=== PATIENT | female | born 1945 | race Caucasian/White ===

== ENCOUNTER → 2023-12-09 10:53 | Outpatient (REF) | payer MEDICARE, BC, SELFPAY | LOC: WDC 10:53 | PROVIDERS: ATTENDING PHYSICIAN Surgery | DX: C50.411 Malignant neoplasm of upper-outer quadrant of right female breast (principal); N63.11 Unspecified lump in the right breast, upper outer quadrant | CPT/HCPCS: 19285; 38792; 76942; 77065; A4648; A9541 ==

== ENCOUNTER 2023-12-10 06:29 | Day surgery (SDC) | payer MEDICARE, BC, SELFPAY ==
[2023-11-14 13:01] VITALS: BMI 27.9
[2023-12-10 09:20] VITALS: BP 130/65
[2023-12-10] MEDS: NORMOSOL-R 1000 IV (09:25)
[2023-12-10 09:31] VITALS: BMI 27.9
[2023-12-10] MEDS: TYLENOL 1000 MG PO (09:36)
[2023-12-10 11:30] VITALS: BP 128/65
[2023-12-10 11:45] VITALS: BP 135/68
[2023-12-10 12:00] VITALS: BP 127/69
--- NOTE | 2023-12-10 12:02 | PTCARENOTE ---
Patient states that she no longer is on Eliquis. Patient and both daughters states that Dr. Louise said that she no longer ever has to restart it and that she is not off it just because of her breast surgery today. Dr Murray notified and aware.
== END 2023-12-10 12:28 | disposition home or self-care (01) ==
LOC: SDS 06:29
PROVIDERS: ATTENDING PHYSICIAN Surgery; FAMILY PHYSICIAN Internal Medicine Geriatric Medicine
DX: C50.411 Malignant neoplasm of upper-outer quadrant of right female breast (principal)
CPT/HCPCS: 38525; 19301; 88305; 88307; 88332; 76098; 88331; 88342; A4648; C1729

== ENCOUNTER → 2024-01-27 09:09 | Outpatient (REF) | payer MEDICARE, BC, SELFPAY | LOC: RAD 09:09 | PROVIDERS: ATTENDING PHYSICIAN Internal Medicine Hematology & Oncology; FAMILY PHYSICIAN Internal Medicine Geriatric Medicine | DX: I26.09 Other pulmonary embolism with acute cor pulmonale (principal); I82.402 Acute embolism and thrombosis of unspecified deep veins of left lower extremity; Z72.0 Tobacco use; R93.89 Abnormal findings on diagnostic imaging of other specified body structures; Z78.0 Asymptomatic menopausal state | CPT/HCPCS: 77080 ==

== ENCOUNTER → 2024-04-21 15:09 | Outpatient (REF) | payer MEDICARE, BC, SELFPAY | LOC: RAD 15:09 | PROVIDERS: ATTENDING PHYSICIAN Family Medicine Geriatric Medicine | DX: M79.89 Other specified soft tissue disorders (principal); M79.662 Pain in left lower leg | CPT/HCPCS: 93970 ==

== ENCOUNTER → 2024-04-23 12:39 | Outpatient (REF) | payer MEDICARE, BC, SELFPAY ==
[2024-04-23 13:18] LABS: % Basophils 0.3 % (0-2); % Eosinophils 0.7 % (0-6); % Immature Granulocytes 0.3 % (0-0.5); % Lymphocytes 22.8 % (20.5-51.1); % Monocytes 6.8 % (1.7-9.3); % Neutrophils 69.1 % (42.2-75.2); Absolute Eosinophils 0.1 10^3/uL (0-0.7); Absolute Lymphocytes 1.6 10^3/uL (1.2-3.4); Absolute Monocytes 0.5 10^3/uL (0.1-0.6); Absolute Neutrophils 4.8 10^3/uL (1.4-6.5); Hematocrit 39.7 % (37.0-47.0); Hemoglobin 13.7 g/dL (12.0-16.0); Mean Corp Hgb Conc. 34.5 g/dL (33.0-37.0); Mean Corpuscular Hgb 33.5 pg (27.0-31.0); Mean Corpuscular Volume 97.1 fL (81.0-99.0); Nucleated Red Blood Cells % 0 %; Platelet Count 207 10^3/uL (130-400); Red Blood Cell Count 4.09 10^6/uL (4.20-5.40); Red Cell Dist. Width 13.5 % (11.5-14.5)
[2024-04-23 13:33] LABS: ALT (SGPT) 13 U/L (0-35); AST (SGOT) 21 U/L (14-36); Albumin 4.4 g/dl (3.5-5.0); Alkaline Phosphatase 74 U/L (38-126); Blood Urea Nitrogen 15 mg/dl (7-17); Calcium 9.7 mg/dl (8.4-10.2); Carbon Dioxide 26 mmol/L (22-30); Chloride 106 mmol/L (98-107); Glucose 105 mg/dl (70-99); Iron 88 ug/dl (37-170); Magnesium 1.9 mg/dl (1.6-2.3); Potassium 4.3 mmol/L (3.5-5.1); Sodium 139 mmol/L (135-145); Total Bilirubin 0.7 mg/dl (0.2-1.3); Total Protein 6.9 g/dl (6.3-8.2); eGFR > 60.00
[2024-04-23 13:42] LABS: Percent Saturation 24 % (20-50); Total Iron Binding Capacity 366 ug/dl (265-497)
== END ==
LOC: RAD 12:39
PROVIDERS: ATTENDING PHYSICIAN Nurse Practitioner Family; FAMILY PHYSICIAN Internal Medicine Geriatric Medicine
DX: M79.604 Pain in right leg (principal); M25.561 Pain in right knee; M79.605 Pain in left leg; M25.562 Pain in left knee; C50.411 Malignant neoplasm of upper-outer quadrant of right female breast
CPT/HCPCS: 36415; 73564; 80053; 82728; 83540; 83550; 83735; 85025

== ENCOUNTER → 2024-05-18 10:58 | Outpatient (REF) | payer MEDICARE, BC, SELFPAY | LOC: RAD 10:58 | PROVIDERS: ATTENDING PHYSICIAN Nurse Practitioner Family; REFERRING PHYSICIAN Internal Medicine Geriatric Medicine | DX: M79.604 Pain in right leg (principal) | CPT/HCPCS: 93971 ==

== ENCOUNTER → 2024-06-04 14:33 | Outpatient (REF) | payer MEDICARE, BC, SELFPAY | LOC: WDC 14:33 | PROVIDERS: ATTENDING PHYSICIAN Surgery; FAMILY PHYSICIAN Internal Medicine Geriatric Medicine | DX: C50.411 Malignant neoplasm of upper-outer quadrant of right female breast (principal) | CPT/HCPCS: 76642 ==

== ENCOUNTER → 2024-09-29 13:49 | Outpatient (REF) | payer MEDICARE, BC, SELFPAY | LOC: WDC 13:49 | PROVIDERS: ATTENDING PHYSICIAN Surgery; FAMILY PHYSICIAN Internal Medicine Geriatric Medicine | DX: Z12.31 Encounter for screening mammogram for malignant neoplasm of breast (principal) | CPT/HCPCS: 76642 ==

== ENCOUNTER → 2024-10-27 16:39 | Outpatient (REF) | payer MEDICARE, BC, SELFPAY | LOC: WDC 16:39 | PROVIDERS: ATTENDING PHYSICIAN Internal Medicine Geriatric Medicine | DX: Z12.31 Encounter for screening mammogram for malignant neoplasm of breast (principal) | CPT/HCPCS: 77063; 77067 ==

== ENCOUNTER 2025-05-24 07:57 | Inpatient (IN) | payer MEDICARE, BC, SELFPAY ==
[2025-05-22] VITALS (10 sets, daily range): BP systolic 114–136; BP diastolic 56–95; BMI 25.5; BMI 23.9
[2025-05-22] MEDS: DILAUDID 0.25 MG IV (08:53)
[2025-05-22 09:01] LABS: Hematocrit 38.0 % (37.0-47.0); Hemoglobin 13.0 g/dL (12.0-16.0); Mean Corp Hgb Conc. 34.2 g/dL (33.0-37.0); Mean Corpuscular Volume 97.2 fL (81.0-99.0); Platelet Count 184 10^3/uL (130-400); Red Cell Dist. Width 13.5 % (11.5-14.5)
[2025-05-22 09:32] LABS: ALT (SGPT) 16 U/L (0-35); AST (SGOT) 21 U/L (14-36); Albumin 4.1 g/dl (3.5-5.0); Alkaline Phosphatase 67 U/L (38-126); Blood Urea Nitrogen 13 mg/dl (7-17); Calcium 9.3 mg/dl (8.4-10.2); Carbon Dioxide 27 mmol/L (22-30); Chloride 105 mmol/L (98-107); Estimated Creatinine Clearance 67 ml/min; Glucose 135 mg/dl (70-99); Potassium 4.5 mmol/L (3.5-5.1); Sodium 138 mmol/L (135-145); Total Protein 6.7 g/dl (6.3-8.2); eGFR > 60.00
--- NOTE | 2025-05-22 09:36 | ED.GENMED ---
History of Present Illness
General
Chief Complaint: Fall
Time Seen by Provider: 05/22/25 08:41
History of Present Illness
History of Present Illness:
80-year-old female with history of breast cancer in remission presents to the emergency department for evaluation after a fall at approximately 3 AM today. Denies head strike. She is not on blood thinners. She landed on her left hip and pelvis
and reports exquisite left hip pain, unable to walk. Denies low back pain or incontinence. No dizziness or headaches.
Review of Systems
Review of Systems
Allergies reviewed?: Yes
All Other Systems: ROS reviewed and negative except as documented in HPI and ROS
Phy Exam
Physical Exam
Physical Exam:
GEN: Well appearing, NAD, WDWN
HEENT: Oral mucosa moist, no scleral icterus
Cardiac: Regular rate
Lung: No respiratory distress, no tachypnea
MSK: No gross deformity or injuries. No shortening or external rotation, marked tenderness to the right lateral hip
Skin: Good color, no pallor or jaundice, no rashes
Neuro: AO x3, moves all extremities freely
Psych: Calm, cooperative
Course
Orders/Labs/Results
Orders:
Orders
05/22/25 08:47
HYDROmorphone [Dilaudid] 0.25 mg IV NOW STA
CR Hip - LT w/wo Pel 2-3 Vw* Urgent
Comment:
Reason For Exam: fall
Include a pelvis x-ray?: Yes
05/22/25 08:51
Complete Blood Count/No Diff Urgent
Comprehensive Metabolic Panel Urgent
05/22/25 09:30
[address] Pelvis W/o Iv Contrast Urgent
Comment:
Reason For Exam: fall L hip pain neg xr
05/22/25 12:11
HYDROmorphone [Dilaudid] 0.5 mg IV NOW STA
Ketorolac [Toradol] 15 mg IV NOW STA
05/22/25 13:22
Admit/Transfer Patient As Directed
Co-Sign Provider:
Level of Care: Observation services
Assign to:: Medical/Surgical
Physician / Group: daily
Diagnosis: fractured paraspinal rods
Code Status As Directed
Resuscitation Status: Full Code
PRN Pain Medication Management As Directed
May give lesser potent ordered pain med per pt: Yes
preference::
Protocol:: Medication orders for pain may be administered in a
manner that supports deferring to patient preference
when the pt is:
- Requesting an ordered lesser potent pain medication.
Least to most potent pain medications are defined
as: acetaminophen < NSAID < tramadol < opioids
(morphine, oxycodone, hydromorphone).
- Requesting a lesser dose of the same medication IF
ORDERED.
- Requesting a less intrusive route of administration
if both routes are prescribed by the provider (PO <
IV).
Abnormal Lab Results
05/22/25
08:51
WBC 11.0 H 10^3/uL
(4.8-10.8)
RBC 3.91 L 10^6/uL
(4.20-5.40)
MCH 33.2 H pg
(27.0-31.0)
Glucose 135 H mg/dl
(70-99)
05/22/25 08:51
05/22/25 08:51
Vital Signs
Initial and Last Documented VS:
Initial Vital Signs
Pulse Resp Pulse Ox
78 18 98
05/22/25 08:42 05/22/25 08:42 05/22/25 08:42
Last Documented Vital Signs
Pulse Resp BP Pulse Ox
72 13 118/65 97
05/22/25 12:15 05/22/25 12:15 05/22/25 12:00 05/22/25 12:15
MDM/Problems Addressed
MDM/Problems Addressed:
Patient's x-ray and CT show no evidence for hip or pelvic fracture. Incidentally she is noted to have discontinuity of her paraspinous lumbar rods however this is not likely acute as she has no acute back pain. She is unable to ambulate despite
numerous doses of pain medicine thus will admit to the hospitalist service for further management
*Pulse Oximetry
SaO2: 98
Patient hypoxic: no
*Critical Care Note
Total Time (30-74mins, 75-104mins- exclusive of procedures): Not Applicable
ED Attending Note
-
Portions of this chart may have been created with voice recognition software.� Occasional wrong word or��sound alike� substitutions may have occurred due to the inherent limitations of voice recognition software.
Discharge Plan
Departure
Patient Disposition: Admit
Date of Disposition: 05/22/25
Time of Disposition: 12:57
Admit to: Med/Surg
Presentation/result/management discussed w/ accepting MD/DO: Hospitalist
Discharge Problem:
Ambulatory dysfunction, Contusion of left hip
Interventions
Interventions:
*Risk Screen - Suicide Last Done: 05/22/25 08:43
*General Assessment Last Done: 05/22/25 08:43
*Neglect/Abuse Screening Last Done: 05/22/25 08:43
*ED- Fall Risk Assessment Last Done: 05/22/25 08:44
*ED COVID-19 Vaccine History Last Done: 05/22/25 08:44
ED-Musculoskeletal Assessment Last Done: 05/22/25 09:06
ED- Neurological Assessment Last Done: 05/22/25 08:57
ED-Skin Assessment Last Done: 05/22/25 09:06
[2025-05-22] MEDS: TORADOL 15 MG IV (12:19)
[2025-05-22] MEDS: DILAUDID 0.5 MG IV (12:20)
--- NOTE | 2025-05-22 13:24 | HPS.HSE ---
Addendum entered and electronically signed by Harshad Kuhn MD 05/22/25 22:35:
Neurosurgery looked at scan and recommended outpatient follow up for fractured paraspinal rods.
Original Note:
Family Physician
-
Family Physician: Fran Noguera
Chief Complaint
-
left hip pain
History of Present Illness
80-year-old female past medical history of breast cancer status post radiation in remission, undiagnosed cognitive impairment, spinal fusion for osteoarthritis 8 years ago complicated by DVT, presenting with fall at 3 AM today that was unwitnessed.
No head injury. No blood thinners. She landed on her left hip and pelvis and reports exquisite left hip and groin pain with movement and unable to walk. Denies lower back pain or incontinence. No dizziness or headache. No other recent falls.
She had spinal fusion 8 years ago with chronic edema of the left lower extremity since then. She also has chronic numbness and tingling of the left lower extremity.
She has new cognitive decline over the past several months.
She smokes 4 cigarettes a day. Denies alcohol.
Medical History
Past Medical History
Past Medical History: Reports Other (breast cancer status post radiation in remission, undiagnosed cognitive impairment, spinal fusion for osteoarthritis 8 years ago complicated by DVT)
Past Surgical History: Reports Other (hysterectomy, spinal fusion )
Social History
Tobacco: Non-smoker
Alcohol: None
Drug: None
Family History
Family History: Not pertinent
Allergies / Home Medications
Allergies reflects when Allergies were last updated in [employer].
Home Medications with original date entered in [employer]
Allergy/Medication List:
Allergies
Allergy/AdvReac Type Severity Reaction Status Date / Time
No Known Allergies Allergy Verified 12/10/23 09:28
Home Medications
Vitamin B-12 1 tab PO .PRN 12/05/23
atorvastatin 80 mg tablet 80 mg PO Q3D 12/05/23
Review of Systems
-
History Source: Patient
A 12 point ROS was completed and negative except as noted: Yes
Constitutional: Reports No Symptoms
EENT: Reports No Symptoms
Respiratory: Reports No Symptoms
Cardiac: Reports No Symptoms
Abdomen/GI: Reports No Symptoms
: Reports No Symptoms
Musculoskeletal: Reports No Symptoms
Skin: Reports No Symptoms
Neurological: Reports No Symptoms
Endocrine: Reports No Symptoms
Hematologic/Lymphatic: Reports No Symptoms
Psych: Reports No Symptoms
Physical Exam
Vital Signs
Vital Signs
Pulse Resp BP Pulse Ox
72 13 118/65 97
05/22/25 12:15 05/22/25 12:15 05/22/25 12:00 05/22/25 12:15
Physical Exam
General: Well Developed, Well Nourished and No Apparent Distress
HEENT: NormoCephalic, Moist mucous membranes and Atraumatic
Respiratory: Clear
Cardiac: S1/S2 and Regular Rhythm; No Murmur or Rub
GI: Soft, Non Tender, Non Distended and Normal Bowel Sounds; No Organomegaly
Rectal: Deferred by Provider
Musculoskeletal: No Clubbing, No Cyanosis and No Edema
Skin: No Rash
Neuro: Nonfocal/grossly intact
Laboratory Results
-
05/22/25 08:51
05/22/25 08:51
Laboratory Results
Total Bilirubin 0.7 mg/dl (0.2-1.3) 05/22/25 08:51
AST 21 U/L (14-36) 05/22/25 08:51
ALT 16 U/L (0-35) 05/22/25 08:51
Alkaline Phosphatase 67 U/L (38-126) 05/22/25 08:51
Data Reviewed
-
Lab Data: Labs Reviewed by me
Old Records: Reviewed
Impression/Plan
-
IMPRESSION:
PLAN:
# Ambulatory dysfunction with fall
# Fractured paraspinal rods without displacement
# Prior lumbar spinal fusion 8 years ago
- Hip x-ray shows severe osteoarthritis of the left hip, fracture bilateral posterior paraspinal rods
- Pelvic CT shows previous circumferential spinal fusion, bilateral posterior intra mentation bilateral osseous fusion graft, fracture bilateral posterior paraspinal rods without evidence for displacement
- Tylenol, ketorolac, Dilaudid for pain
- Neurosurgery consulted for recommendations on fractured paraspinal rods
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
- Not on anticoagulation currently
Breast cancer status post radiation in remission
Undiagnosed cognitive impairment
Smoker
Full code
DVT prophylaxis�heparin
Regular diet
--- NOTE | 2025-05-22 14:04 | CM ---
CM reviewed chart and met with pt bedside in ED. Pt shares a house with her daughter, pt lives in first floor, daughter on second floor. [address].
Independent in ADLs, personal care and ambulation at baseline, no assistive devices, still drives.
RIZVI reviewed and signed.
Confirms prescription coverage.
No hx VN or SNF
PCP: Bin Noguera
Pharmacy:[address]
CM will continue to follow for any discharge planning needs.
[2025-05-22] MEDS: HEPARIN 5000 UNITS SC (20:22)
[2025-05-23 07:05] VITALS: BP 131/55
[2025-05-23] MEDS: FEMARA 2.5 MG PO (07:43)
[2025-05-23] MEDS: HEPARIN 5000 UNITS SC (07:43)
[2025-05-23 08:44] LABS: Hematocrit 35.8 % (37.0-47.0); Hemoglobin 12.3 g/dL (12.0-16.0); Mean Corp Hgb Conc. 34.4 g/dL (33.0-37.0); Mean Corpuscular Volume 95.7 fL (81.0-99.0); Nucleated Red Blood Cells % 0 %; Platelet Count 155 10^3/uL (130-400); Red Cell Dist. Width 13.4 % (11.5-14.5)
--- NOTE | 2025-05-23 08:49 | W.PN.HOSP.TC ---
Today's Communication/Plan
-
PT/OT
pain control
dc planning
Assessment / Plan
Assessment / Plan
80F w/ breast cancer s/p radiation in remission, undiagnosed cognitive impairment, spinal fusion for osteoarthritis 8 years ago complicated by DVT, presenting with fall. Found to have fractured bilateral posterior paraspinal rods.
# Fractured paraspinal rods without displacement
Prior lumbar spinal fusion 8 years ago
- Hip x-ray shows severe osteoarthritis of the left hip, fracture bilateral posterior paraspinal rods
- Pelvic CT shows previous circumferential spinal fusion, bilateral posterior intra mentation bilateral osseous fusion graft, fracture bilateral posterior paraspinal rods without evidence for displacement
- Tylenol, ketorolac, Dilaudid for pain
- Neurosurgery consulted for recommendations on fractured paraspinal rods. Per notes Neurosurgery looked at scan and recommended outpatient follow up for fractured paraspinal rods.
PT/OT
#History of DVT after spinal fusion
used to be on eliquis for years
Not on anticoagulation currently
#Breast cancer status post radiation in remission
#Undiagnosed cognitive impairment
Full code
DVT prophylaxis�lovenox
Anticipated Discharge: Within 24 hours
Subjective/Interval History
-
Date of Service: May 23, 2025
Pt still with pain in L groin when she tries to move left leg. Daughters at bedside. All questions answered as able.
Objective Data
-
Labs:
Laboratory Results
05/23/25
07:37
WBC 6.1
Hgb 12.3
Hct 35.8 L
Plt Count 155
Sodium Pending
Potassium Pending
Chloride Pending
Carbon Dioxide Pending
BUN Pending
Creatinine Pending
Glucose Pending
Calcium Pending
Total Bilirubin Pending
AST Pending
ALT Pending
Alkaline Phosphatase Pending
Vital Signs:
Vital Signs
Temp Pulse Resp BP Pulse Ox
99 F 68 16 131/55 89
05/23/25 07:05 05/23/25 07:05 05/23/25 07:05 05/23/25 07:05 05/23/25 07:05
I&O
05/22/25 05/23/25 05/24/25
06:59 06:59 06:59
Output Total 500 / 500
Balance -500 / -500
Review of Systems
-
All other systems: Reviewed and negative
Physical Exam
-
General: No Apparent Distress
HEENT: Moist Mucous Membranes, Anicteric and PERRLA
Respiratory: Clear to Auscultation; Negative Wheezes, Rales or Rhonchi
Cardiac: Regular Rhythm and S1/S2; Negative Murmur, Rub or Gallop
GI: Soft, Nontender, Nondistended and Normal Bowel Sounds
Musculoskeletal: No Edema and Other (pain with lifting L leg. L groin nontender to palpation)
Skin: Warm and Dry; Negative Rash, Ulcers or Lesions
Neuro: Awake and AO x 3
Hematologic / Lymphatic: No Lymphadenopathy
Psych: Calm
Data Reviewed
-
CT Scan: Image personally visualized and interpreted, Report Reviewed by me, Discussed with Patient and Discussed with Family
Labs: Labs Reviewed by me, Discussed with Patient and Discussed with Family
--- NOTE | 2025-05-23 09:00 | CM ---
Patient is OBS, therefore cannot qualify for skilled placement under Medicare will look into [facility] and review private pay, need PT/OT evaluations and recommendations to review discharge plan.
Plan; Await PT/OT evaluations
[2025-05-23 09:09] LABS: ALT (SGPT) 13 U/L (0-35); AST (SGOT) 18 U/L (14-36); Albumin 3.6 g/dl (3.5-5.0); Alkaline Phosphatase 72 U/L (38-126); Blood Urea Nitrogen 11 mg/dl (7-17); Calcium 8.7 mg/dl (8.4-10.2); Carbon Dioxide 25 mmol/L (22-30); Chloride 107 mmol/L (98-107); Estimated Creatinine Clearance 67 ml/min; Glucose 108 mg/dl (70-99); Potassium 3.8 mmol/L (3.5-5.1); Sodium 135 mmol/L (135-145); Total Protein 6.0 g/dl (6.3-8.2); eGFR > 60.00
[2025-05-23] MEDS: DILAUDID 0.5 MG IV ×2 (10:27→15:02)
[2025-05-23] MEDS: SENOKOT-S 1 TABLET PO (12:55)
[2025-05-23 15:07] VITALS: BP 134/61; PULSE 64; O2SAT 94
[2025-05-23 15:32] VITALS: BP 127/58
[2025-05-23] MEDS: LOVENOX 40 MG SC (17:14)
[2025-05-23 23:52] VITALS: BP 130/54
[2025-05-24 06:54] LABS: Hematocrit 36.5 % (37.0-47.0); Hemoglobin 12.6 g/dL (12.0-16.0); Mean Corp Hgb Conc. 34.5 g/dL (33.0-37.0); Mean Corpuscular Volume 96.1 fL (81.0-99.0); Platelet Count 152 10^3/uL (130-400); Red Cell Dist. Width 13.2 % (11.5-14.5)
[2025-05-24 07:27] LABS: Blood Urea Nitrogen 11 mg/dl (7-17); Calcium 9.1 mg/dl (8.4-10.2); Carbon Dioxide 23 mmol/L (22-30); Chloride 107 mmol/L (98-107); Estimated Creatinine Clearance 67 ml/min; Glucose 104 mg/dl (70-99); Potassium 3.9 mmol/L (3.5-5.1); Sodium 136 mmol/L (135-145); eGFR > 60.00
[2025-05-24 07:30] VITALS: BP 146/65
[2025-05-24] MEDS: FEMARA 2.5 MG PO (07:32)
[2025-05-24] MEDS: DILAUDID 0.5 MG IV ×2 (09:34→17:40)
[2025-05-24 10:00] VITALS: BP 149/69; PULSE 62; O2SAT 96
[2025-05-24 10:03] VITALS: BP 149/69; PULSE 68; O2SAT 97
--- NOTE | 2025-05-24 11:11 | W.PN.HOSP.TC ---
Today's Communication/Plan
-
pain control
OOB/PT
SNF on dc
lovenox for dvt ppx
Assessment / Plan
Assessment / Plan
80F w/ breast cancer s/p radiation in remission, undiagnosed cognitive impairment, spinal fusion for osteoarthritis 8 years ago complicated by DVT, presenting with fall. Found to have fractured bilateral posterior paraspinal rods.
#Fractured paraspinal rods without displacement WITH Prior lumbar spinal fusion 8 years ago
- Hip x-ray shows severe osteoarthritis of the left hip, fracture bilateral posterior paraspinal rods
- Pelvic CT shows previous circumferential spinal fusion, bilateral posterior intra mentation bilateral osseous fusion graft, fracture bilateral posterior paraspinal rods without evidence for displacement
- Tylenol, ketorolac, Dilaudid for pain
- Neurosurgery consulted for recommendations on fractured paraspinal rods. Per notes Neurosurgery looked at scan and recommended outpatient follow up for fractured paraspinal rods.
- PT/OT-recs SNF
#History of DVT after spinal fusion
used to be on eliquis for years
Not on anticoagulation currently
#Breast cancer status post radiation in remission
Dietary eval.
#Undiagnosed cognitive impairment
Full code
DVT prophylaxis�lovenox
PT/OT-SNF. CM aware.
d/w with daughter at bedside in details.
Anticipated Discharge: 24 - 48 hours
Subjective/Interval History
-
Date of Service: May 24, 2025
Denies pain at rest
However did state pain with activity yesterday
Objective Data
-
Labs:
Laboratory Results
05/24/25
06:13
WBC 6.2
Hgb 12.6
Hct 36.5 L
Plt Count 152
Sodium 136
Potassium 3.9
Chloride 107
Carbon Dioxide 23
BUN 11
Creatinine 0.6
Glucose 104 H
Calcium 9.1
Vital Signs:
Vital Signs
Temp Pulse Resp BP Pulse Ox
98.1 F 67 16 146/65 94
05/24/25 07:30 05/24/25 07:30 05/24/25 07:30 05/24/25 07:30 05/24/25 07:30
I&O
05/23/25 05/24/25 05/25/25
06:59 06:59 06:59
Output Total 500 / 500 200 / 200
Balance -500 / -500 -200 / -200
--- NOTE | 2025-05-24 12:15 | CM ---
Patient has switched to inpatient, IMM given at 11am, patient qualifies for [facility] program also. Physical therapy are recommending skilled placement, options reviewed and [facility] discussed and patient has selected [facility],
referral sent to [facility], private room.
Plan; Skilled placement, referral sent to [facility].
[2025-05-24 15:30] VITALS: BP 133/65
[2025-05-24] MEDS: LOVENOX 40 MG SC (17:08)
[2025-05-24 23:00] VITALS: BP 114/49
[2025-05-25 07:00] VITALS: BP 123/59
[2025-05-25] MEDS: FEMARA 2.5 MG PO (08:22)
[2025-05-25] MEDS: MILK OF MAGNESIA 30 ML PO (11:08)
--- NOTE | 2025-05-25 11:09 | CM ---
Addendum entered by Janice Tomlinson 05/25/25 11:52:
Patient scheduled for 3:00 p.m. ambulance transport, update to daughter. [facility] liaison updated.
[facility]
Report: [phone]

Original Note:
CM reviewed chart, patient seen bedside, discussed plan for d/c today to [facility]. CM spoke with daughterCaitlin, explained [facility] waiver program will cover patient to d/c to rehab without three night inpatient stay. Patient will
require ambulance transport. Clinicals faxed to [facility] [phone] for waiver program. Gunjan, liaison at [facility], aware of discharge. CM will continue to follow for all discharge planning needs.
Plan; d/c to [facility] SNF, [facility] waiver program, ambulance transport
--- NOTE | 2025-05-25 11:11 | W.PN.HOSP.TC ---
Today's Communication/Plan
-
[facility]
OP nsg f/u
Assessment / Plan
Assessment / Plan
80F w/ breast cancer s/p radiation in remission, undiagnosed cognitive impairment, spinal fusion for osteoarthritis 8 years ago complicated by DVT, presenting with fall. Found to have fractured bilateral posterior paraspinal rods.
#Fractured paraspinal rods without displacement WITH Prior lumbar spinal fusion 8 years ago
- Hip x-ray shows severe osteoarthritis of the left hip, fracture bilateral posterior paraspinal rods
- Pelvic CT shows previous circumferential spinal fusion, bilateral posterior intra mentation bilateral osseous fusion graft, fracture bilateral posterior paraspinal rods without evidence for displacement
- Tylenol, and transition to tramadol.
- Neurosurgery consulted for recommendations on fractured paraspinal rods. Per notes Neurosurgery looked at scan and recommended outpatient follow up for fractured paraspinal rods.
- PT/OT-recs SNF
#History of DVT after spinal fusion
used to be on eliquis for years
Not on anticoagulation currently
#Breast cancer status post radiation in remission
Dietary eval.
#Undiagnosed cognitive impairment
Full code
DVT prophylaxis�lovenox
PT/OT-SNF. CM aware.
d/w with daughter at bedside in details.
More than 30 minutes spent in discharge including
Final examination of the patient
Summarizing hospital stay
Instructions for continuing care to all relevant caregivers
Preparation of discharge records, prescriptions, and referral forms
Total time spent (in minutes): 52
d/w with CM/RN.
Anticipated Discharge: Today
Subjective/Interval History
-
Date of Service: May 25, 2025
worked with PT/OT yesterday
remains in intermittent pain
Objective Data
-
Vital Signs:
Vital Signs
Temp Pulse Resp BP Pulse Ox
97.8 F 56 18 123/59 95
05/25/25 07:00 05/25/25 07:00 05/25/25 07:00 05/25/25 07:00 05/25/25 07:00
I&O
05/24/25 05/25/25 05/26/25
06:59 06:59 06:59
Intake Total 550 / 550
Output Total 200 / 200 550 / 550
Balance -200 / -200 0 / 0
--- NOTE | 2025-05-25 11:14 | W.DCSUMMARY ---
Discharge Summary
Discharge Data
Date of Admission: 05/24/25
Date of Discharge: 05/25/25
-
Pending Results: No
Hospital Course
80-year-old female past medical history of breast cancer status post radiation in remission, undiagnosed cognitive impairment, spinal fusion for osteoarthritis 8 years ago complicated by DVT, presenting with fall at 3 AM prior to admission that was
unwitnessed. No head injury. No blood thinners. She landed on her left hip and pelvis and reports exquisite left hip and groin pain with movement and unable to walk. She had spinal fusion 8 years ago. Hip x-ray shows severe osteoarthritis of the
left hip, fracture bilateral posterior paraspinal rods Pelvic CT shows previous circumferential spinal fusion, bilateral posterior intra mentation bilateral osseous fusion graft, fracture bilateral posterior paraspinal rods without evidence for
displacement. Admitting doctor d/w with neurosurgery .Neurosurgery looked at scan and recommended outpatient follow up for fractured paraspinal rods. Patient was started on pain control regimen. Patient was out by physical and Occupational
Therapy. Patient will be discharged to longterm facility.
Discharge Plan
-
Patient Disposition: Shelter/SNF
Discharge Diagnosis/Procedures: Fractured paraspinal rods without displacement
Ambulatory dysfunction
Condition: Fair
Diet: Regular
Activity: With assistance and As tolerated
Driving Restrictions: No driving
Referrals:
Fran Noguera MD [Family Provider, Internal Medicine] - in less than 1 week
Carolyn Malloy MD [Active, Neurosurgery] - in one to two weeks
Referral Note: follow up for fractured paraspinal rods.
Prescriptions:
New
sennosides-docusate sodium 8.6-50 mg Tablet
1 tab PO BID Qty: 20 0RF
tramadol 50 mg tablet
50 mg PO TID PRN (Reason: mod-severe pain) Qty: 9 0RF
acetaminophen 325 mg Tablet
650 mg PO Q4HPRN PRN (Reason: mild pain) Qty: 20 0RF
Continued
atorvastatin 80 mg Tablet
80 mg PO Q3D
Rx Instructions:
daughter says that she no longer takes this medication
Vitamin B-12
1 tab PO .PRN
Rx Instructions:
Pt doesn't take medication anymore
letrozole 2.5 mg Tablet
2.5 mg PO DAILY
Discharge Orders:
Discharge Patient (As Directed); Ordered 05/25/25
Ordered By: Gurinder Pappas
Discharge Date and Time
Print Language: BENGALI
[2025-05-25 15:00] VITALS: BP 141/71
--- NOTE | 2025-05-25 15:45 | PTCARENOTE ---
patient daughter requested tramadol for pt before discharge for pain management during transport. MD did not have tramadol ordered so RN explained to pt that there wasn't an order but would reach out to provider about getting STAT dose before
discharge. pt daughter then said 'i have tramadol, i can give it to her' RN explained that medication received in hospital has to be doctors order. RN reached out to MD and doctor agreed to place one time order before discharge. RN went back in pt
room to tell pt and family that she would receive the tramadol once it was verified by pharmacy. daughter states that she gave pt a dose of her tramadol 50mg. RN told daughter that she should not have given her own personal medication to her mom.
daughter said that she gave med because she didn't think she was going to get it before discharge. RN notified MD and called [facility] to inform them that she received this dose from her daughter before discharge. RN spoke with Yefri from
[facility] about pt receiving tramadol 50mg PO from her daughter right before discharge at 1515.
== END 2025-05-25 15:32 | DRG 561 ==
LOC: 4 WEST ACU 07:57
PROVIDERS: Internal Medicine; Physician Assistant; ADMITTING PHYSICIAN Hospitalist; ATTENDING PHYSICIAN Hospitalist; EMERGENCY PHYSICIAN Emergency Medicine; FAMILY PHYSICIAN Internal Medicine Geriatric Medicine
DX: T84.216A Breakdown (mechanical) of internal fixation device of vertebrae, initial encounter (principal); M16.12 Unilateral primary osteoarthritis, left hip; F17.210 Nicotine dependence, cigarettes, uncomplicated; G31.84 Mild cognitive impairment of uncertain or unknown etiology; Y84.8 Other medical procedures as the cause of abnormal reaction of the patient, or of later complication, without mention of misadventure at the time of the procedure; S70.02XA Contusion of left hip, initial encounter; W19.XXXA Unspecified fall, initial encounter; Y93.9 Activity, unspecified; Y92.9 Unspecified place or not applicable; Z92.3 Personal history of irradiation; Z98.1 Arthrodesis status; Z86.718 Personal history of other venous thrombosis and embolism; Z85.3 Personal history of malignant neoplasm of breast
CPT/HCPCS: 72192; 73502; 80048; 80053; 85025; 85027; 87070; 96374; 96375; 96376; 97163; 97167; 97530; 99285; 99406

== ENCOUNTER → 2025-07-16 10:59 | Outpatient (REF) | payer MEDICARE, BC, SELFPAY | LOC: RAD 10:59 | PROVIDERS: ATTENDING PHYSICIAN Internal Medicine Geriatric Medicine | DX: M79.89 Other specified soft tissue disorders (principal); Z86.718 Personal history of other venous thrombosis and embolism; R60.9 Edema, unspecified | CPT/HCPCS: 72170; 73610; 93971 ==

== ENCOUNTER → 2025-08-05 13:55 | Outpatient (REF) | payer MEDICARE, BC, SELFPAY | LOC: RAD 13:55 | PROVIDERS: ATTENDING PHYSICIAN Internal Medicine Geriatric Medicine | DX: E78.2 Mixed hyperlipidemia (principal); R41.3 Other amnesia; Z86.718 Personal history of other venous thrombosis and embolism; E55.9 Vitamin D deficiency, unspecified; M79.89 Other specified soft tissue disorders; G50.0 Trigeminal neuralgia; R35.0 Frequency of micturition; M85.80 Other specified disorders of bone density and structure, unspecified site; G62.9 Polyneuropathy, unspecified; C50.411 Malignant neoplasm of upper-outer quadrant of right female breast; M16.12 Unilateral primary osteoarthritis, left hip; Z13.31 Encounter for screening for depression; R10.20 Pelvic and perineal pain unspecified side; M25.472 Effusion, left ankle; M25.572 Pain in left ankle and joints of left foot; R60.9 Edema, unspecified | CPT/HCPCS: 93971 ==